=== PATIENT | male | born 1950 | race Caucasian/White ===

== ENCOUNTER 2022-05-07 07:52 | Day surgery (SDC) | payer OTHER, BC ==
[2022-05-07] MEDS ORDERED: diphenhydrAMINE HCL 25 MG CAPSULE (FP) PO ONE (09:00)
[2022-05-07] MEDS ORDERED: ACETAMINOPHEN 500 MG TABLET (FP) PO ONE (09:00)
[2022-05-07] MEDS ORDERED: METHYLPREDNISOLONE NA SUCC 100 MG in SODIUM CHLORIDE 50 ML IVPB ONE (09:00)
[2022-05-07] MEDS ORDERED: RITUXIMAB-ABBS 1,000 MG in DEXTROSE 5%-WATER - 400 ML IVPB ONE (10:30)
[2022-05-07 14:25] VITALS: RESP 20; TEMP 98.1
[2022-05-07 14:50] VITALS: BP 111/47; PULSE 58
[2022-05-21] MEDS ORDERED: MAGNESIUM SULFATE IN WATER 2 GM/50 ML IVPB IVPB ONE (11:30)
[2022-05-21] MEDS ORDERED: INSULIN (NOVOLOG) ASPART 100 UNITS/ML 10ML VIAL SQ ONE (11:30)
== END 2022-05-07 14:00 | disposition home or self-care (01) ==
LOC: J7W 07:52 → JINFUSION 07:52
PROVIDERS: ATTEND Internal Medicine Rheumatology
DX: M05.79 Rheumatoid arthritis with rheumatoid factor of multiple sites without organ or systems involvement (principal)
CPT/HCPCS: 96367; 96413; 96415; Q5115

== ENCOUNTER 2022-05-21 08:07 | Day surgery (SDC) | payer OTHER, BC ==
[2022-05-21 09:23] LABS: EOS % 0.9 % (0-4.5); HEMATOCRIT 36.3 % (35.4-49); HEMOGLOBIN 12.5 GM/dL (11.7-16.9); LYMPH % 21.4 % (8-40); MCH 31.3 pg (25.7-33.7); MCHC 34.5 g/dl (32.0-35.9); MEAN CELL VOLUME 90.6 fl (80-96); MEAN PLT VOLUME 7.6 fl (7.5-11.1); MONO % 8.2 % (3.8-10.2); NEUT % 68.5 % (42.8-82.8); PLATELET COUNT 259 10^3/uL (134-434); RBC 4.01 M/mm3 (4.00-5.60); RDW 16.3 % (11.9-15.9)
[2022-05-21 09:32] LABS: ALBUMIN 3.4 g/dl (3.4-5.0); CALCIUM 9.2 mg/dL (8.5-10.1); MAGNESIUM 1.5 mg/dL (1.8-2.4)
[2022-05-21 09:35] LABS: BILIRUBIN,DIRECT 0.3 mg/dL (0.0-0.2); CREATININE 0.9 mg/dL (0.55-1.3)
[2022-05-21 09:37] LABS: BILIRUBIN,TOTAL 0.9 mg/dL (0.2-1); TOT PROT 6.3 g/dl (6.4-8.2)
[2022-05-21] MEDS ORDERED: METHYLPREDNISOLONE NA SUCC 100 MG in SODIUM CHLORIDE 50 ML IVPB ONE (10:00)
[2022-05-21] MEDS ORDERED: ACETAMINOPHEN 500 MG TABLET (FP) PO ONE (10:00)
[2022-05-21] MEDS ORDERED: diphenhydrAMINE HCL 25 MG CAPSULE (FP) PO ONE (10:00)
[2022-05-21] MEDS ORDERED: INSULIN (NOVOLOG) ASPART 100 UNITS/ML 10ML VIAL ONE (10:10)
[2022-05-21] MEDS ORDERED: MAGNESIUM SULF 50% (8.12 MEQ/2 ML-1 GM VIAL) ONE (10:29)
[2022-05-21] MEDS ORDERED: RITUXIMAB-ABBS 1,000 MG in DEXTROSE 5%-WATER - 400 ML IVPB ONE (10:30)
[2022-05-21] MEDS ORDERED: INSULIN REGULAR HUMAN 100 UNITS/ML *VIAL SQ ONE (10:45)
[2022-05-21] MEDS ORDERED: MAGNESIUM SULFATE IN WATER 2 GM/50 ML IVPB IVPB ONE (10:45)
[2022-05-21] MEDS ORDERED: methylPREDNISolone NA SUCC 125 MG/2 ML VIAL ONE (11:18)
[2022-05-21 13:40] VITALS: RESP 18
[2022-05-21 13:58] VITALS: TEMP 97.5
[2022-05-21 15:25] VITALS: BP 125/51; PULSE 68
== END 2022-05-21 15:45 | disposition home or self-care (01) ==
LOC: JINFUSION 08:07 → J7W 08:08 → JINFUSION 15:26
PROVIDERS: ATTEND Internal Medicine Rheumatology
DX: M05.79 Rheumatoid arthritis with rheumatoid factor of multiple sites without organ or systems involvement (principal)
CPT/HCPCS: 36415; 80053; 80076; 83615; 83735; 85025; 96367; 96413; 96415; Q5115

== ENCOUNTER 2022-05-27 14:55 | Inpatient (IN) | payer OTHER, BC ==
[2022-05-27 14:59] VITALS: RESP 18
[2022-05-27] MEDS ORDERED: VANCOMYCIN 1 GM in D5W (PRE-DOCKED) 1,000 MG/250 ML IVPB ONE (15:34)
[2022-05-27] MEDS ORDERED: AZTREONAM 1 GM VIAL (RESTRICTED TO ID) IVPB ONE (15:35)
[2022-05-27] MEDS ORDERED: AZTREONAM 1 GM VIAL (RESTRICTED TO ID) ONE (16:09)
[2022-05-27] MEDS ORDERED: VANCOMYCIN/WATER FOR INJ (PEG) 1,000 MG/200 ML BAG IVPB ONE (16:10)
[2022-05-27 16:44] LABS: BASO % 0.8 % (0-2.0); EOS % 0.8 % (0-4.5); HEMATOCRIT 36.4 % (35.4-49); HEMOGLOBIN 12.5 GM/dL (11.7-16.9); LYMPH % 18.4 % (8-40); MCH 31.2 pg (25.7-33.7); MCHC 34.4 g/dl (32.0-35.9); MEAN CELL VOLUME 90.8 fl (80-96); MEAN PLT VOLUME 7.4 fl (7.5-11.1); MONO % 4.4 % (3.8-10.2); NEUT % 75.6 % (42.8-82.8); PLATELET COUNT 223 10^3/uL (134-434); RBC 4.01 M/mm3 (4.00-5.60); WHITE BLOOD COUNT 6.8 K/mm3 (4.0-10.0)
[2022-05-27 17:10] LABS: CALCIUM 8.9 mg/dL (8.5-10.1)
[2022-05-27 17:11] LABS: ALBUMIN 3.4 g/dl (3.4-5.0); BLOOD UREA NITROGEN 20.8 mg/dL (7-18)
[2022-05-27 17:14] LABS: CREATININE 1.1 mg/dL (0.55-1.3)
[2022-05-27 17:15] LABS: BILIRUBIN,TOTAL 0.9 mg/dL (0.2-1)
[2022-05-27 17:16] LABS: TOT PROT 6.3 g/dl (6.4-8.2)
[2022-05-27 17:34] LABS: LACTIC ACID 2.3 mmol/L (0.4-2.0)
[2022-05-27] MEDS ORDERED: POTASSIUM CHLORIDE TABS 20 MEQ TABLET.ER (FP) PO ONE ×2 (19:37→19:58)
[2022-05-27] MEDS ORDERED: ACETAMINOPHEN 325 MG TABLET (FP) PO PRN (19:44)
[2022-05-27] MEDS ORDERED: SODIUM CHLORIDE 1,000 ML IV SCH (19:45)
[2022-05-27] MEDS ORDERED: SODIUM CHLORIDE 500 ML IV STA (19:50)
[2022-05-27] MEDS ORDERED: AZTREONAM 1 GM in DEXTROSE 5%-WATER - 50 ML IVPB SCH ×2 (20:00→23:45)
[2022-05-27] MEDS ORDERED: VANCOMYCIN/WATER 1,250 MG/250 ML BAG (RESTRICTED TO ID ONLY) IVPB SCH (20:15)
[2022-05-27] MEDS ORDERED: ACETAMINOPHEN 325 MG TABLET (FP) ONE (20:50)
[2022-05-27] MEDS ORDERED: QUEtiapine FUMARATE 25 MG TABLET PO SCH (22:00)
[2022-05-27] MEDS ORDERED: LORazepam 0.5 MG TABLET PO SCH (22:00)
[2022-05-27] MEDS ORDERED: TAMSULOSIN HCL 0.4 MG CAP PO SCH (22:02)
[2022-05-27] MEDS ORDERED: GABAPENTIN 400 MG CAPSULE ONE (22:21)
[2022-05-27] MEDS: GABAPENTIN 400 MG CAPSULE PO SCH (22:27)
[2022-05-27] MEDS ORDERED: ACETAMINOPHEN 1000 MG/100 ML BAG IVPB PRN (22:53)
[2022-05-27] MEDS ORDERED: QUEtiapine FUMARATE 25 MG TABLET ONE (22:58)
[2022-05-27] MEDS ORDERED: LORazepam 1 MG TABLET ONE (22:58)
[2022-05-27] MEDS ORDERED: TAMSULOSIN HCL 0.4 MG CAP ONE (22:59)
[2022-05-27] MEDS: INSULIN SLIDING SCALE (NOVOLOG) 1 VIAL SQ SCH (23:07)
[2022-05-27 23:17] LABS: MAGNESIUM 1.5 mg/dL (1.8-2.4)
[2022-05-27] MEDS: azaTHIOprine 50 MG TABLET PO SCH (23:41)
[2022-05-28] MEDS ORDERED: AZTREONAM 1 GM VIAL (RESTRICTED TO ID) ONE (00:11)
[2022-05-28] MEDS: AZTREONAM 1 GM in SODIUM CHLORIDE 50 ML IVPB SCH ×3 (03:15→15:06)
[2022-05-28] MEDS ORDERED: VANCOMYCIN/WATER 1,250 MG/250 ML BAG (RESTRICTED TO ID ONLY) IVPB SCH (06:00)
[2022-05-28] MEDS: INSULIN SLIDING SCALE (NOVOLOG) 1 VIAL SQ SCH ×3 (06:06→17:02)
[2022-05-28] MEDS ORDERED: MAG HYDROX/AL HYDROX/SIMETH 30 ML UNIT-DOSE CUP PO PRN (09:06)
[2022-05-28] MEDS ORDERED: FOLIC ACID 1 MG TABLET (FP) PO SCH (10:00)
[2022-05-28] MEDS ORDERED: LOSARTAN POTASSIUM 25 MG TABLET PO SCH (10:00)
[2022-05-28] MEDS ORDERED: LACTOBACILLUS ACIDOPHILUS 1 TABLET PO SCH (10:00)
[2022-05-28] MEDS ORDERED: CLOPIDOGREL BISULFATE 75 MG TABLET (FP) PO SCH ×2 (10:00→11:30)
[2022-05-28] MEDS: GABAPENTIN 400 MG CAPSULE PO SCH (10:27)
[2022-05-28] MEDS: azaTHIOprine 50 MG TABLET PO SCH (10:45)
[2022-05-28 11:39] VITALS: BMI 29.0
[2022-05-28] MEDS ORDERED: POTASSIUM CHLORIDE 10 MEQ in SODIUM CHLORIDE 1,000 ML IV SCH (11:41)
[2022-05-28 12:00] LABS: EOS % 1.6 % (0-4.5); HEMATOCRIT 34.8 % (35.4-49); HEMOGLOBIN 11.7 GM/dL (11.7-16.9); INR 0.96 (0.83-1.09); LYMPH % 24.8 % (8-40); MCH 30.4 pg (25.7-33.7); MCHC 33.7 g/dl (32.0-35.9); MEAN CELL VOLUME 90.3 fl (80-96); MONO % 7.7 % (3.8-10.2); NEUT % 64.9 % (42.8-82.8); PLATELET COUNT 205 10^3/uL (134-434); RBC 3.85 M/mm3 (4.00-5.60); RDW 16.1 % (11.9-15.9)
[2022-05-28 12:03] LABS: ACTIVATED PTT 27.9 SECONDS (25.2-36.5)
[2022-05-28 12:20] LABS: CALCIUM 8.3 mg/dL (8.5-10.1)
[2022-05-28 12:21] LABS: BLOOD UREA NITROGEN 16.3 mg/dL (7-18)
[2022-05-28 12:24] LABS: CREATININE 0.8 mg/dL (0.55-1.3)
[2022-05-28 14:42] LABS: CALCIUM 8.6 mg/dL (8.5-10.1)
[2022-05-28 14:43] LABS: ALBUMIN 3.2 g/dl (3.4-5.0); BLOOD UREA NITROGEN 14.8 mg/dL (7-18); MAGNESIUM 1.6 mg/dL (1.8-2.4)
[2022-05-28 14:46] LABS: CREATININE 0.8 mg/dL (0.55-1.3)
[2022-05-28 14:48] LABS: BILIRUBIN,TOTAL 0.8 mg/dL (0.2-1)
[2022-05-28 15:18] VITALS: BP 113/60; PULSE 62; TEMP 97.7
[2022-05-28] MEDS: VANCOMYCIN/WATER 1,250 MG/250 ML BAG (RESTRICTED TO ID ONLY) IVPB SCH (17:35)
[2022-05-28] MEDS ORDERED: AZTREONAM 1 GM in SODIUM CHLORIDE 50 ML IVPB SCH (21:00)
[2022-05-28] MEDS ORDERED: ROSUVASTATIN CA 20 MG TABLET PO SCH (22:00)
[2022-06-01] MEDS ORDERED: METHOTREXATE 2.5 MG TABLET PO SCH ×2 (10:00→22:00)
== END 2022-05-28 17:09 | disposition home or self-care (01) | DRG 605 ==
LOC: JER 14:55 → JERBED 15:33 → J5S 05-28 01:02
PROVIDERS: ADMIT Internal Medicine; ATTEND Family Medicine
DX: S91.301A Unspecified open wound, right foot, initial encounter (principal); E87.20 Acidosis, unspecified; E11.42 Type 2 diabetes mellitus with diabetic polyneuropathy; E78.5 Hyperlipidemia, unspecified; I11.0 Hypertensive heart disease with heart failure; I50.9 Heart failure, unspecified; I25.10 Atherosclerotic heart disease of native coronary artery without angina pectoris; Z79.4 Long term (current) use of insulin; M06.9 Rheumatoid arthritis, unspecified; F32.A Depression, unspecified; F41.9 Anxiety disorder, unspecified; W25.XXXA Contact with sharp glass, initial encounter; Y93.89 Activity, other specified; Y92.89 Other specified places as the place of occurrence of the external cause; Y99.8 Other external cause status; E87.6 Hypokalemia
CPT/HCPCS: 36415; 71045-TC-FY; 73630-TC-RT-FY; 73718-TC-RT; 80048; 80053; 82962; 83605; 83735; 85025; 85610; 85730; 93005; 93010; 93926-TC; 99285-25; C9803-CS; G0463-25; U0003; U0005

== ENCOUNTER 2023-01-01 07:58 | Day surgery (SDC) | payer OTHER, BC ==
[2023-01-01] MEDS ORDERED: diphenhydrAMINE HCL 25 MG CAPSULE (FP) PO ONE (10:00)
[2023-01-01] MEDS ORDERED: METHYLPREDNISOLONE NA SUCC 100 MG in SODIUM CHLORIDE 50 ML IVPB ONE (10:00)
[2023-01-01] MEDS ORDERED: ACETAMINOPHEN 500 MG TABLET (FP) PO ONE (10:00)
[2023-01-01] MEDS ORDERED: RITUXIMAB-ABBS 1,000 MG in DEXTROSE 5%-WATER - 400 ML IVPB ONE (10:30)
[2023-01-01 16:08] VITALS: RESP 20; TEMP 97.9
[2023-01-01 16:11] VITALS: BP 141/71; PULSE 78
== END 2023-01-01 15:15 | disposition home or self-care (01) ==
LOC: JINFUSION 07:58 → J7W 07:58 → JINFUSION 15:15
PROVIDERS: ATTEND Internal Medicine Rheumatology
DX: M05.79 Rheumatoid arthritis with rheumatoid factor of multiple sites without organ or systems involvement (principal)
CPT/HCPCS: 96367; 96413; 96415; Q5115

== ENCOUNTER 2023-07-19 07:20 | Day surgery (SDC) | payer OTHER, BC ==
[2023-07-19] MEDS ORDERED: METHYLPREDNISOLONE NA SUCC 100 MG in SODIUM CHLORIDE 50 ML IVPB ONE (08:00)
[2023-07-19] MEDS ORDERED: ACETAMINOPHEN 500 MG TABLET (FP) PO ONE (08:00)
[2023-07-19] MEDS ORDERED: diphenhydrAMINE HCL 25 MG CAPSULE (FP) PO ONE (08:00)
[2023-07-19 13:52] VITALS: RESP 20
[2023-07-19 14:12] VITALS: BP 113/51; PULSE 53; TEMP 97.7
== END 2023-07-19 14:15 | disposition home or self-care (01) ==
LOC: J7W 07:20 → JINFUSION 07:20
PROVIDERS: ATTEND Internal Medicine Rheumatology
DX: M05.79 Rheumatoid arthritis with rheumatoid factor of multiple sites without organ or systems involvement (principal)
CPT/HCPCS: 96367; 96413; 96415; Q5115

== ENCOUNTER 2023-08-09 07:35 | Day surgery (SDC) | payer OTHER, BC ==
[2023-08-09] MEDS ORDERED: METHYLPREDNISOLONE NA SUCC 100 MG in SODIUM CHLORIDE 50 ML IVPB ONE (09:00)
[2023-08-09] MEDS ORDERED: diphenhydrAMINE HCL 25 MG CAPSULE (FP) PO ONE (09:00)
[2023-08-09] MEDS ORDERED: ACETAMINOPHEN 500 MG TABLET (FP) PO ONE (09:00)
[2023-08-09 17:01] VITALS: TEMP 98
[2023-08-09 17:05] VITALS: BP 129/81; PULSE 60; RESP 18
== END 2023-08-09 14:35 | disposition home or self-care (01) ==
LOC: JINFUSION 07:35 → J7W 07:36 → JINFUSION 14:35
PROVIDERS: ATTEND Internal Medicine Rheumatology
DX: M05.79 Rheumatoid arthritis with rheumatoid factor of multiple sites without organ or systems involvement (principal)
CPT/HCPCS: 96413; 96415; Q5115

== ENCOUNTER 2024-01-27 07:56 | Day surgery (SDC) | payer OTHER, BC ==
[2024-01-27] MEDS: diphenhydrAMINE HCL 25 MG CAPSULE (FP) PO ONE (10:19)
[2024-01-27] MEDS: ACETAMINOPHEN 500 MG TABLET (FP) PO ONE (10:19)
[2024-01-27] MEDS: METHYLPREDNISOLONE NA SUCC 100 MG in SODIUM CHLORIDE 50 ML IVPB ONE (10:19)
[2024-01-27 16:51] VITALS: RESP 20; TEMP 98
[2024-01-27 17:00] VITALS: BP 118/55; PULSE 62
== END 2024-01-27 14:45 | disposition home or self-care (01) ==
LOC: J7W 07:56 → JONCCHEMO 07:56
PROVIDERS: ATTEND Internal Medicine Rheumatology
DX: M05.79 Rheumatoid arthritis with rheumatoid factor of multiple sites without organ or systems involvement (principal)
CPT/HCPCS: 96375; 96413; 96415; Q5115

== ENCOUNTER 2024-02-10 07:54 | Day surgery (SDC) | payer OTHER, BC ==
[2024-02-10] MEDS: METHYLPREDNISOLONE NA SUCC 100 MG in SODIUM CHLORIDE 50 ML IVPB ONE (09:28)
[2024-02-10] MEDS: ACETAMINOPHEN 500 MG TABLET (FP) PO ONE (09:28)
[2024-02-10] MEDS: diphenhydrAMINE HCL 25 MG CAPSULE (FP) PO ONE (09:29)
[2024-02-10] MEDS: RITUXIMAB 1,000 MG in DEXTROSE 5%-WATER - 400 ML IVPB ONE (10:00)
[2024-02-10 14:47] VITALS: RESP 20; TEMP 97.6
[2024-02-10 14:53] VITALS: BP 128/58; PULSE 57
== END 2024-02-10 14:50 | disposition home or self-care (01) ==
LOC: JONCCHEMO 07:54 → J7W 07:55 → JONCCHEMO 14:50
PROVIDERS: ATTEND Internal Medicine Rheumatology
DX: M05.79 Rheumatoid arthritis with rheumatoid factor of multiple sites without organ or systems involvement (principal)
CPT/HCPCS: 96367; 96413; 96415; J9312